=== PATIENT | female | born 1955 | race Caucasian/White ===

== ENCOUNTER 2020-10-19 09:45 | Emergency (ER) | payer MEDICARE, OTHER ==
[2020-10-19 11:52] LABS: BASOPHIL 0.3 % (0-2); EOSINOPHIL 2.3 % (0-7); HCT 37.2 % (37.0-47.0); HGB 12.2 g/dl (12.5-16.0); LYMPHOCYTE 30.4 % (15-48); MCH 31.5 pg (25.0-31.0); MCHC 32.8 g/dL (32.0-36.0); MCV 96.1 fL (78.0-100.0); MONOCYTE 4.2 % (0-12); MPV 9.1 fL (6.0-9.5); NEUTROPHIL 62.8 % (41-80); NRBC 0; PLT 222 K/uL (150-400); RBC 3.87 M/uL (4.20-5.40); RDW 13.7 % (11.5-14.0); WBC 3.9 K/uL (4.0-10.5)
[2020-10-19 12:18] LABS: CREATININE 0.66 mg/dL (0.51-0.95)
[2020-10-19 12:19] LABS: ALBUMIN 3.9 g/dL (3.4-5.0); BILIRUBIN - TOTAL 0.3 mg/dL (0.2-1.0); GLOBULIN (CALCULATION) 4.5 g/dL; POTASSIUM 5.2 mmol/L (3.5-5.1); TOTAL PROTEIN 8.4 g/dL (6.4-8.2)
== END 2020-10-19 15:15 | disposition home or self-care (01) ==
LOC: FER 09:45
PROVIDERS: Emergency Medicine
DX: M54.2 Cervicalgia (principal); R22.33 Localized swelling, mass and lump, upper limb, bilateral
CPT/HCPCS: 36415; 72125; 80053; 85025; 85379; 93970